=== PATIENT | female | born 1985 ===

== ENCOUNTER 2020-06-29 09:30 | Inpatient (IN) | payer OTHER ==
[~2020-06-29] VITALS: Ht 160 cm; Wt 84.8 kg
[2020-06-29] MEDS ORDERED: METHIMAZOLE10 MG PO (11:52)
[2020-06-29] MEDS ORDERED: PROTONIX40 MG PO (11:52)
[2020-06-29] MEDS ORDERED: CITRACAL-VIT D1 EACH PO (11:53)
[2020-06-29] MEDS ORDERED: LUGOL'S STRONG I8 ML (11:54)
== END 2020-07-08 10:13 | disposition home or self-care (01) | DRG 627 ==
LOC: O/R 07-06 07:55 → SURH 07-06 07:55
PROVIDERS: ADMIT Surgery; ATTEND Surgery
PROC: 0GTK0ZZ Resection of Thyroid Gland, Open Approach (ICD-10-PCS; principal; 2020-07-06 08:30)
PROC: 0J9500Z Drainage of Left Neck Subcutaneous Tissue and Fascia with Drainage Device, Open Approach (ICD-10-PCS; 2020-07-07)
PROC: 0J9400Z Drainage of Right Neck Subcutaneous Tissue and Fascia with Drainage Device, Open Approach (ICD-10-PCS; 2020-07-07)
DX: E05.20 Thyrotoxicosis with toxic multinodular goiter without thyrotoxic crisis or storm (principal); E05.00 Thyrotoxicosis with diffuse goiter without thyrotoxic crisis or storm; S10.93XA Contusion of unspecified part of neck, initial encounter